=== PATIENT | male | born 1960 | race African-American/Black ===

== ENCOUNTER → 2017-03-30 | Outpatient (CLI) | payer OTHER ==
--- NOTE | 2017-03-30 15:47 | PCVCIMAG ---
EXAM: BILATERAL LOWER EXTREMITY ARTERIAL DUPLEX INDICATION: Peripheral Arterial Disease. Leg pain. FINDINGS: Right Leg: Satisfactory arterial waveform in the common femoral and profunda femoral arteries. Occlusion throughout most of the length of the superficial femoral artery including the stent in the distal vessel. The mid and distal popliteal artery refills and shows adequate patency. Occlusion of the anterior tibial artery. The peroneal and posterior tibial arteries are patent. Left Leg: Satisfactory arterial waveforms in the common femoral profunda femoral arteries. Occlusion throughout most of the length of the superficial femoral artery including stent in the distal vessel. The popliteal artery is patent. Occlusion of the anterior tibial artery. The peroneal and posterior tibial arteries are patent. IMPRESSION: Occlusion of the right superficial femoral artery and right anterior tibial artery. Occlusion of the left superficial femoral artery and left anterior tibial artery. LOC:[id number]
== END | disposition home or self-care (01) ==
LOC: PCVCIMAG 14:45
PROVIDERS: ATTEND Internal Medicine Cardiovascular Disease
DX: I77.1 Stricture of artery (principal); I73.9 Peripheral vascular disease, unspecified; M10.072 Idiopathic gout, left ankle and foot; M32.9 Systemic lupus erythematosus, unspecified; E78.00 Pure hypercholesterolemia, unspecified; Z72.0 Tobacco use; Z95.828 Presence of other vascular implants and grafts
CPT/HCPCS: 93925; G0463

== ENCOUNTER → 2017-04-01 | Outpatient (CLI) | payer OTHER ==
[~2017-04-01] MED LIST: DIAZEPAM 10 MG TABLET. ONE; EPTIFIBATIDE BOLUS 2,000 MCG/ML 10ML VIAL. IV ONE; HEPARIN SODIUM 5,000 UNIT/ML VIAL for PCVC. ONE; IODIXANOL 270 MG/ML 100 ML VIAL. ONE; IV NORMAL SALINE 1000ML BAG 1,000 ML ONE; IV NORMAL SALINE 500ML BAG 500 ML ONE; IV NORMAL SALINE 50ML 50 ML ONE; LIDOCAINE 1% Multi-Dose 20 ML VIAL. ONE; MIDAZOLAM HCL/PF 2 MG/2 ML VIAL. ONE; ceFAZolin SODIUM 1 GM VIAL ONE; fentaNYL PF VIAL 100 MCG/2 ML VIAL ONE; hydrALAZINE 20 MG/ML VIAL. ONE
--- NOTE | 2017-04-01 13:21 | PCVCINTER ---
EXAM: 1. AORTOGRAM AND BILATERAL LOWER EXTREMITY RUNOFF ANGIOGRAM 2. BILATERAL RENAL ANGIOGRAPHY 3. LEFT SUPERFICIAL FEMORAL ARTERY ATHERECTOMY AND STENT PLACEMENT. 4. SECONDARY THROMBECTOMY LEFT SUPERFICIAL FEMORAL ARTERY. 5. DRUG COATED BALLOON ANGIOPLASTY LEFT SUPERFICIAL FEMORAL ARTERY. INDICATION: Peripheral arterial disease. Nonhealing ulcer left lower extremity. Hypertension. Renal atherosclerosis. PROCEDURE: Procedure and risks of angiography intervention is appropriate including limb loss stroke and were discussed with the patient's family and consent obtained. The patient's right groin was prepped abnormal sterile fashion. IV conscious sedation was used to procedure with appropriate monitoring from 11:00 AM through 12:30 PM. Ultrasound was used to interrogate the right groin and showed the right common femoral artery to be patent. A permanent spot film was obtained. Under ultrasound guidance access into the right common femoral artery was obtained and a 5 Zimbabwean sheath was placed. Through this a 5 Zimbabwean flush catheter was placed into the abdominal aorta at the level of the renal arteries and AP aortogram was performed. Catheter was positioned at the aortic bifurcation and both oblique views of the pelvis were obtained. Catheter was positioned into the right external iliac artery and right leg runoff angiography was performed. Catheter was exchanged for a visceral catheter was placed into the right renal arteries and right renal angiograms obtained. Catheter was placed into the the left renal arteries and left renal angiograms were obtained. Catheter was advanced to the level of the left external iliac artery and left leg runoff angiography was obtained. Patient was given 4000 units of heparin. A 6 Zimbabwean crossover sheath was placed via the right groin to the level of the left common femoral artery. Atherectomy of the left superficial femoral artery was performed with 2.0 mm AnteryonnetThalchemy laser atherectomy catheter in the standard fashion. Following atherectomy small areas of thrombus were observed and because of this secondary thrombectomy throughout the left superficial femoral artery was carried out with mechanical suction thrombectomy catheter in the standard fashion. Minimal debris was removed. Stent placement across the areas of high-grade stenosis in the left superficial femoral artery was carried out with a 6 x 150 and 6 x 40 Smart control stent with subsequent dilatation to 5.0 mm in its mid and distal portion and 4.0 mm proximally. Following this drug coated balloon angioplasty of the left superficial femoral artery was carried out with a 5 x 80 and 4 x 150 Medtronic Admiral DISHCLOTH FOLDER catheter. Follow-up angiogram was performed. Catheters and wires removed. Sheath was removed and hemostasis obtained using the FISH device. No immediate complications. FINDINGS: Aortogram: There is one right and one left renal artery. Mild plaque infrarenal abdominal aorta without significant stenosis. Pelvis: Mild plaque right common iliac artery without significant stenosis. Left common iliac artery is patent. Occlusion of the right internal iliac artery with high-grade stenosis left internal iliac artery. Diffuse plaque both external iliac arteries without flow-limiting stenosis. Mild stenosis upper right common femoral artery. Left common femoral artery is patent. The right and left profunda femoral arteries show good patency. Right renal artery: Minimal plaque proximal vessel without significant stenosis. Left renal artery: Minimal plaque proximal vessel without significant stenosis. Right leg: Complete occlusion throughout the superficial femoral artery with prior Nitinol stent and stent graft noted in the distal superficial femoral artery. Refilling of the popliteal artery which shows satisfactory patency. The anterior tibial artery is occluded. The peroneal and posterior tibial arteries are patent bilaterally. Left leg: Complete occlusion mid/distal superficial femoral artery within prior nitinol stent. Refilling of the distal most SFA with the popliteal artery showing satisfactory patency. Occlusion of the anterior tibial artery. The peroneal artery and posterior tibial arteries show good patency. Left superficial femoral artery: Following procedure as above vessel shows good patency. IMPRESSION: Occlusion of the mid/distal left superficial femoral artery was treated as above with good patency restored. Occlusion throughout the right superficial femoral artery. I will follow-up with the patient in 3 months regarding his progress. If patient is having lateralizing right leg symptoms further discussion regarding revascularization the right leg will be given. LOC:[id number]
== END | disposition home or self-care (01) ==
LOC: PCVCINTER 09:37
PROVIDERS: ATTEND Nuclear Medicine Nuclear Cardiology
DX: I70.213 Atherosclerosis of native arteries of extremities with intermittent claudication, bilateral legs (principal); I70.1 Atherosclerosis of renal artery; I10 Essential (primary) hypertension; E78.5 Hyperlipidemia, unspecified; E78.00 Pure hypercholesterolemia, unspecified
CPT/HCPCS: 36252; 37186; 37227; 75716; 76937; 99152; 99153; C1725; C1751; C1757; C1769; C1876; C1885; C1887; C1894; C2623; J0360; J0690; J1327; J1644; J2250; J3010; J7030; J7040; Q9966

== ENCOUNTER → 2017-04-15 | Outpatient (CLI) | payer OTHER ==
--- NOTE | 2017-04-15 14:57 | PCVCIMAG ---
APPROVED REPORT Study performed: 04/15/2017 14:02:53 EXAM: Comprehensive 2D, Doppler, and color-flow Echocardiogram Patient Location: Echo lab Status: routine BSA: 1.74 HR: 71 bpm Rhythm: NSR Other Information Study Quality: Good Risk Factors: Cardiac Risk Factors: Hyperlipidemia, Smoking Indications Lupus, PVD 2D Dimensions LVEF(%): 56.76 (>50%) IVSd: 11.07 (7-11mm)LVOT Diam: 22.22 (18-24mm) LVDd: 43.26 mm PWd: 8.69 (7-11mm)Ascending Ao: 25.59 (22-36mm) LVDs: 30.50 (25-40mm) Left Atrium: 32.26 (27-40mm) Aortic Root: 27.38 mm LV Single Plane 4CH: 60.10 % LV Single Plane 2CH: 58.07 %Navarrete's LVEF: 56.76 % Biplane EF: 60.2 % Volumes Left Atrial Volume (Systole) Single Plane 4CH: 30.81 mLSingle Plane 2CH: 43.89 mL Aortic Valve AoV Peak Caleb.: 1.53 m/s AO Peak Gr.: 9.31 mmHgLVOT Max P.64 mmHg LVOT Max V: 1.29 m/s EDDIE Vmax: 3.27 cm2 Mitral Valve E/A Ratio: 0.77 MV Decel. Time: 162.47 ms MV E Max Caleb.: 0.68 m/s MV A Caleb.: 0.88 m/s IVRT: 96.89 ms Pulmonary Vein P Vein S: 0.77 m/sP Vein A: 0.35 m/s P Vein D: 0.60 m/sP Vein A Dur.: 83.0 msec Left Ventricle The left ventricle is normal size. There is normal LV segmental wall motion. There is normal left ventricular wall thickness. Left ventricular systolic function is normal. The left ventricular ejection fraction is within the normal range. LVEF is 60%. The left ventricular diastolic function is normal. Right Ventricle The right ventricle is normal size. The right ventricular systolic function is normal. Atria The left atrium size is normal. The right atrium size is normal. Aortic Valve The aortic valve is normal in structure. No aortic regurgitation is present. There is no aortic valvular stenosis. Mitral Valve The mitral valve is normal in structure. There is no mitral valve regurgitation noted. No evidence of mitral valve stenosis. Tricuspid Valve The tricuspid valve is normal in structure. There is no tricuspid valve regurgitation noted. Pulmonic Valve The pulmonary valve is normal in structure. Trace pulmonic regurgitation. Great Vessels The aortic root is normal in size. IVC is normal in size and collapses with >50% inspiration Pericardium There is no pericardial effusion. <Conclusion> The left ventricle is normal size. Left ventricular systolic function is normal. The right ventricle is normal size. The left atrium size is normal. The aortic valve is normal in structure. There is no mitral valve regurgitation noted. There is no pericardial effusion.
== END | disposition home or self-care (01) ==
LOC: PCVCIMAG 04-08 09:37
PROVIDERS: ATTEND Internal Medicine Cardiovascular Disease
DX: I37.1 Nonrheumatic pulmonary valve insufficiency (principal); E78.00 Pure hypercholesterolemia, unspecified; I73.9 Peripheral vascular disease, unspecified; Z72.0 Tobacco use; Z79.899 Other long term (current) drug therapy; Z95.828 Presence of other vascular implants and grafts
CPT/HCPCS: 93306; G0463

== ENCOUNTER → 2017-06-03 | Outpatient (CLI) | payer OTHER ==
--- NOTE | 2017-06-04 08:30 | PCVCIMAG ---
APPROVED REPORT Exam: Stress Echocardiogram Indication: Dyspnea , PAD, Hyperlipidemia Ht: 5 ft 10 in HR: 65 bpm BP: 136/76 mmHg Rhythm: NSR Medical History Medical History: PAD, Hyperlipidemia, Tobacco history (Current/Recent) Cardiac Risk Factors: Hyperlipidemia, Smoking Exercise History: Physically active Procedure The patient underwent an Exercise Stress Test using the Kalyan Protocol. Blood pressure, heart rate, and EKG were monitored. An Echocardiogram was performed by final operations technician in four stages in quad fashion. At peak stress, four selected images were obtained and placed side by side with resting images for comparison. Stress Test Details Stress Test: Exercise stress testing was performed using a Kalyan protocol. HR Resting HR: 65 bpmMax Heart Rate (APMHR): 165 bpm Max HR Achieved: 130 bpmTarget HR (85% APMHR): 140 bpm % of APMHR: 78 Recovery HR: 68 bpm HR response to stress: Normal HR response to stress- submaximal stress BP Resting BP: 136/76 mmHg Max BP: 142/66 mmHg Recovery BP: 140/68 mmHg ECG Resting ECG: Sinus Rhythm Stress ECG: Sinus Rhythm ST Change: Non-ischemic Arrhythmia: occasional PVCs Recovery ECG: Sinus Rhythm Recovery ST Change: Non-ischemic Recovery Arrhythmia: rare PVCs Clinical Reason for Termination: Leg pain/Claudication Exercise duration: 4 min 33 sec Highest Stage Achieved: Stage 2: 2.5 mph at 12% grade. Exercise capacity: 7 METs Angina Score: None Stress ECG Conclusion The patient exercised according to the Kalyan Protocol for 4:33 minutes, achieving a maximum work level of 7 METS. The resting heart rate of 65 bpm, stacey to a maximal level of130 bpm. This value represents 78 % of the maximal, age-predicted heart rate. The resting blood pressure of 136/76 mmHg, stacey to a maximum blood pressure of 142/66 mmHg. The exercise was stopped due to right calf cramping. Pre-Stress Echo The resting Echocardiogram showed normal left ventricular contractility with an estimated Ejection Fraction of about >55%. Post-Stress Echo The stress Echocardiogram showed normal left ventricular contractility with an estimated Ejection Fraction of about 60-65%. Clinical No clinical or ECG evidence for ischemia. Conclusion Clinical Response: Non-ischemic Exercise Capacity: Below Average Stress ECG Response: Indeterminant Stress Echo Images: Non-ischemic Non-diagnostic study due to inability of the patient to achieve 85% of maximal HR. Suggest myocardial imaging study. <Conclusion> Non-diagnostic study due to inability of the patient to achieve 85% of maximal HR. Suggest myocardial imaging study.
== END | disposition home or self-care (01) ==
LOC: PCVCIMAG 14:12
PROVIDERS: ATTEND Internal Medicine Cardiovascular Disease
DX: I73.9 Peripheral vascular disease, unspecified (principal); R06.00 Dyspnea, unspecified; E78.5 Hyperlipidemia, unspecified; Z72.0 Tobacco use
CPT/HCPCS: 93325; 93351

== ENCOUNTER → 2017-06-23 | Outpatient (CLI) | payer OTHER ==
[~2017-06-23] MED LIST changes: -DIAZEPAM 10 MG TABLET. ONE; -EPTIFIBATIDE BOLUS 2,000 MCG/ML 10ML VIAL. IV ONE; -HEPARIN SODIUM 5,000 UNIT/ML VIAL for PCVC. ONE; -IODIXANOL 270 MG/ML 100 ML VIAL. ONE; -IV NORMAL SALINE 1000ML BAG 1,000 ML ONE; -IV NORMAL SALINE 500ML BAG 500 ML ONE; -IV NORMAL SALINE 50ML 50 ML ONE; -LIDOCAINE 1% Multi-Dose 20 ML VIAL. ONE; -MIDAZOLAM HCL/PF 2 MG/2 ML VIAL. ONE; +REGADENOSON 0.4 MG/5 ML DISP.SYRIN. IV ONE; -ceFAZolin SODIUM 1 GM VIAL ONE; -fentaNYL PF VIAL 100 MCG/2 ML VIAL ONE; -hydrALAZINE 20 MG/ML VIAL. ONE
--- NOTE | 2017-06-23 12:00 | PCVCIMAG ---
APPROVED REPORT Exam: Nuclear Stress Test Indication: Dyspnea, Abn EKG, Hear Rate Patient Location: Out-Patient Stress Nurse: Barbara Torres RN, Venita Owen RN DE Tech:Hamilton Shelley NMVANNAB Ht: 5 ft 10 in Wt: 130 lbs BSA: 1.74 m2 HR: 60 bpm BP: 135/74 mmHg BMI: 18.6 Rhythm: Bradycardia Medical History Medical History: Age, Hyperlipidemia, PVD, Smoker Medications: Plavix, Plaquenil Allergies: NKDA Previous Cardiac Procedures: SE- Unable to obtain HR Pretest Chest Pain Characteristics: No chest pain Exercise History: Physically active Stress Test Details Stress Test: Pharmacologic stress was paired with low level exercise. Reason for pharmacologic stress test: pvd. HR Resting HR: 60 bpmMax Heart Rate (APMHR): 165 bpm Max HR Achieved: 106 bpmTarget HR (85% APMHR): 140 bpm % of APMHR: 64 Recovery HR: 67 bpm BP Resting BP: 135/74 mmHg Max BP: 148/74 mmHg ECG Resting ECG: Sinus Bradycardia with early repol Stress ECG: Sinus Tachycardia ST Change: Non-ischemic Recovery ECG: Sinus Rhythm Clinical Reason for Termination: Completed protocol Stress Symptoms: Dyspnea Exercise duration: 4 min 0 sec Exercise capacity: 1.6 METs Symptoms resolved over time NM EXAM: Myocardial Perfusion REST/STRESS Imaging Protocol: Rest Tc-99m/Stress Tc-99m 1 day Resting Data Rest SPECT myocardial perfusion imaging was performed in supine position 45 minutes following the intravenous injection of 8.7 mCi of Tc-99m Sestamibi. Time of rest injection: 914 Date: 06/23/2017 Administration Route: IV Administration Site: Right Arm Pharmacologic Stress Pharmacologic stress test was performed by injecting Regadenoson 0.4 mg IV push followed by the intravenous injection of 26.7 mCi of Tc-99m Sestamibi. Time of stress injection: 0 Date: 06/23/2017 Administration Route: IV Administration Site: Right Arm Gated Stress SPECT was performed 45 minutes after stress injection. The images were gated to evaluate regional wall motion and calculate left ventricular ejection fraction. Study Quality Study: Good Study Data Post stress, the left ventricular ejection was 67%.. SSS: 4 SRS: 0 SDS: 4 TID = 0.92. Perfusion Normal left ventricular perfusion. Normal perfusion on both the stress and rest images. Wall Motion Normal left ventricular wall motion. Nuclear Conclusion ECG Findings: negative for ischemia Clinical Findings: non-diagnostic Nuclear Findings: negative for ischemia This study is of low probability for inducible ischemia or prior infarct. Normal global and segmental LV systolic function.
== END | disposition home or self-care (01) ==
LOC: PCVCIMAG 09:05
PROVIDERS: ATTEND Internal Medicine Cardiovascular Disease
DX: R06.09 Other forms of dyspnea (principal); I73.9 Peripheral vascular disease, unspecified; E78.00 Pure hypercholesterolemia, unspecified; R94.31 Abnormal electrocardiogram [ECG] [EKG]; F17.200 Nicotine dependence, unspecified, uncomplicated
CPT/HCPCS: 78452; 93005; 93017; A9500; J2785

== ENCOUNTER → 2017-07-23 | Outpatient (CLI) | payer OTHER | END | disposition home or self-care (01) | LOC: PCVCIMAG 13:14 | DX: I73.9 Peripheral vascular disease, unspecified (principal); I65.21 Occlusion and stenosis of right carotid artery; I77.9 Disorder of arteries and arterioles, unspecified; E78.00 Pure hypercholesterolemia, unspecified; L93.0 Discoid lupus erythematosus; F17.200 Nicotine dependence, unspecified, uncomplicated | CPT/HCPCS: 93880; 93926; G0463 ==

== ENCOUNTER → 2018-01-28 | Outpatient (CLI) | payer OTHER | END | disposition home or self-care (01) | LOC: PCVCIMAG 14:56 | DX: I73.9 Peripheral vascular disease, unspecified (principal) | CPT/HCPCS: 93926 ==

== ENCOUNTER → 2018-11-01 | Outpatient (CLI) | payer OTHER ==
--- NOTE | 2018-11-01 13:28 | PCVCIMAG ---
EXAM: BILATERAL CAROTID DUPLEX INDICATION: Carotid Occlusive Disease. FINDINGS: Doppler Measurements (centimeters per second): RIGHT: Peak CCA-140, Peak ECA-81, Diastolic ICA-39, Peak ICA-111, ICA/CCA Ratio-0.8. LEFT: Peak CCA-123, Peak ECA-68, Diastolic ICA-37, Peak ICA-114, ICA/CCA Ratio-0.9. RIGHT CAROTID: The carotid bulb has moderate plaque. The proximal internal carotid artery shows <40% stenosis. The common carotid artery shows no significant stenosis. The external carotid artery shows no significant stenosis. LEFT CAROTID: The carotid bulb has mild plaque. The proximal internal carotid artery shows <40% stenosis. The common carotid artery shows no significant stenosis. The external carotid artery shows no significant stenosis. Antegrade flow in both vertebral arteries. IMPRESSION: <40% stenosis of the right internal carotid artery with moderate plaque. <40% stenosis of the left internal carotid artery with mild plaque. No change since July 2017 study. LOC:[id number]
--- NOTE | 2018-11-01 14:22 | PCVCIMAG ---
EXAM: LEFT LOWER EXTREMITY ARTERIAL DUPLEX INDICATION: Peripheral Arterial Disease. Leg pain. FINDINGS: Left Leg: Common femoral and profunda femoral arteries are patent. Superficial femoral and popliteal are patent. Prior stent in the mid/distal superficial femoral artery maintaining good patency. Segmental occlusion mid anterior tibial artery. The peroneal artery and posterior tibial arteries are patent. IMPRESSION: Previous stent left superficial femoral artery maintaining good patency. Unchanged occlusion mid left anterior tibial artery. LOC:[id number]
== END | disposition home or self-care (01) ==
LOC: PCVCIMAG 08:00
PROVIDERS: ATTEND Nuclear Medicine Nuclear Cardiology
DX: I65.23 Occlusion and stenosis of bilateral carotid arteries (principal); I73.9 Peripheral vascular disease, unspecified; Z72.0 Tobacco use
CPT/HCPCS: 93880; 93926